=== PATIENT | male | born 1980 | race Caucasian/White ===

== ENCOUNTER 2025-06-04 14:36 | Outpatient (OUT) | payer OTHER, SELFPAY ==
--- NOTE | 2025-06-04 14:50 | CT_ITS ---
The [address] [address] Patient Name: EL SMITH MRN: [id number] date: 1980 Sex: M Assigned Patient Location: CT Current Patient Location: CT Accession/Order Number: [id number] Exam Date: 06/04/2025 16:27 Report Date: 06/04/2025 16:30 At the request of: LEONARD DANIEL MD Procedure: CT chest wo con CT Chest without contrast TECHNIQUE: Axial imaging with 2-D reconstruction. The CT exam was performed using one or more the following dose reduction techniques: Automated exposure control, adjustment of the MA and/or Kv according to patient size, or use of the iterative reconstruction technique. History: Left-sided chest pain COMPARISON: None THYROID: Unremarkable TRACHEA AND BRONCHI: Patent ESOPHAGUS: Unremarkable. HEART: Within normal limits PERICARDIAL EFFUSION: None CORONARY ARTERY CALCIFICATION: None MEDIASTINUM: No adenopathy. No pneumoperitoneum. No mediastinal hematoma. PULMONARY AMINA: No hilar mass or adenopathy is seen. THORACIC AORTA Unremarkable LUNG NODULE None LUNGS: Minimal left lung base scarring. PLEURAL EFFUSION: None PNEUMOTHORAX: No pneumothorax seen. CHEST WALL: No abnormality AXILLA:Unremarkable BONY STRUCTURES remote left rib fractures. UPPER ABDOMEN: Hepatic steatosis. CT/CT chest wo con IMPRESSION: No acute findings. Mild left basilar scarring. Old left rib fractures. Impression dictated by: José Miguel Butcher M.D. 06/04/2025 4:30 PM Dictation Location: CURRENT Electronically authenticated by: [id number] Y Date: 06/04/2025 16:30
== END 2025-06-04 14:37 | disposition home or self-care (01) ==
LOC: CT 14:40
PROVIDERS: PCP Family Medicine; Visit Provider Family Medicine
DX: R07.89 Other chest pain (principal)
CPT/HCPCS: 71250

== ENCOUNTER 2025-10-16 10:26 | Outpatient (OUT) | payer OTHER, SELFPAY ==
--- OUTSIDE RECORDS SUMMARY | 2025-10-16 05:10 | XMS_ITS | Continuity of Care Document ---
Author Organization [facility] Address [address] [place] [address] Phone Care Team Providers Care [employer]ner Name Role Phone Aimee Hicks MD Primary Care Provider Jelena Chapman APRN Attending Provider Aimee Hicks MD Attending Provider Care Teams Patient Care Team Team Status: Active Member Role/Relationship Status Dates Aimee Hicks MD Primary Care Provider Active Visit Care Team Team Status: Inactive Member Role/Relationship Status Dates Aimee Hicks MD Primary Care Provider Active Start: August 02, 2025 End: August 02, 2025Pamarky Chapman APRN TEST TUBE MAKER-CAttending Provider ActiveStart: August 02, 2025 End: August 02, 2025 Patient Care Team Team Status: Inactive Member Role/Relationship Status Dates Aimee Hicks MD Primary Care Provider Active Start: October 16, 2025 End: October 16, 2025Aimee Hicks MDAttending ProviderActiveStart: October 16, 2025 End: October 16, 2025 Chief Complaint and Reason for Visit Chief Complaint Admit Date cough, congestion August 02, 2025 9:02am Wellness October 16, 2025 9:28am Reason for Visit Admit Date Viral URI August 02, 2025 9:02am Wellness examination October 16, 2025 9:28am Allergies, Adverse Reactions, Alerts Allergen Type Severity Reaction Last Updated Verified Status No Known Allergies Allergy Unknown October 16, 2025 9:38amYesActive Social History Smoking Status Status Start Date End Date Date of Observa tion Never smoked tobacco (finding) October 16, 2025 9:41am Observation Status Observation Response Date of Response Legal Sex Male (finding) Sex Assigned At [facility] 1979 Family History Relationship Condition Age at Onset Recorded Date/T flavio Not Specified No pertinent family history Unknown brotherDeceasedUnknown Problems Active Problems Problem Diagnosis/Recorded Date Onset Date Stat us Rib injury February 11, 2025 10:19am Unknown Act stephanie Wellness examination October 16, 2025 10:00am Unkno wn Active Rib contusion February 11, 2025 11:21am Unknown Ac tive Left-sided chest wall pain April 30, 2025 1:11pm Unkno wn Active Wrist pain, right October 31, 2024 12:18pm Unknown Active Viral URI August 02, 2025 8:21am Unknown A ctive Medications Medication Status Dose Units Route Directions Qty Days Refills S tart Date Stop Date End Date Reason(s) Instructions Adherence Cetirizine (All Day Allergy (Cetirizine)) 10 mg tablet Discontinued 10 MG PO Daily 90 3February 2023 12:00amFebruary 2024 8:28amOmeprazole 40 mg capsule,delayed release(DR/EC)Uedcaf68XYLZYghjn29830Etrst 2023 3:43pm Complies with drug therapyCetirizine (All Day Allergy (Cetirizine)) 10 mg tablet Yzqary24SEAYOryhu475Bptusdkm 2024 8:28amComplies with drug therapy Omeprazole 40 mg capsule,delayed release(DR/EC)Yzzkhcwvlwve92NPWGFupag110Opjnzyo 2023 12:00amMarch 2023 3:43pmAmoxicillin-Pot Clavulanate 875-125 mg ugxtxwJbgvbcupvxvm2WEGQTMtglb ynspg102Mkcqb 2023 11:00pmDecember 2023 11:43amAlbuterol Sulfate 90 mcg/actuation HFA aerosol hpmgqnvQbdvrn0HFEH INHALATIONFour times daily as needed for shortness of breath or wheezing8.50 March 25, 2024 11:00pmComplies with drug therapyMethylprednisolone (Medrol (Chan)) 4 mg tablets,dose drnxJjpxzpngvmgn1VRtzn package kuzxyagzmp67Rguvg 2023 11:00pmDe2023 11:43amPO PER PKG DIR for 6 daysTriamcinolone Acetonide (Nasacort) 55 mcg aerosol,lswhcHldygmbvgkbt3EXKWTJIRHSOWVNXOgrphBsez 1st, 2025 11:00pmSept2024 8:10amFreeTextSi sprays Nasally Once a day; Note: Source Status: Taking; Refills: 1; Provider: Kurt Welsh Clotrimazole-Betamethasone 1-0.05 % izkojNhtfeosvxdlf7MJUFEAWVQCQVDZrrsy daily April 29, 2025 11:00pmJun2024 12:34pmFreeTextSi application Externally Twice a day; Note: Source Status: Taking; Provider: Kurt Yu ( )Triamcinolone Acetonide (Nasacort) 55 mcg aerosol,sprayActive2 SPRAYINTRANASALDaily as neededAugust 02, 2025 8:10amFreeTextSi sprays Nasally Once a day; Note: Source Status: Taking; Refills: 1; Provider: Kurt guthrie EComplies with drug therapy Immunizations Immunization Event Date Not Given Reason Dose Number Admin Assistant Lot Number Reason(s) Given Vaccine Information Statement (VIS) Detail Administration Location COVID-19 Jayden Cervantes ([employer]) October 21, 2021 influenza, unspecified formulationNov2020influenza, unspecified formulationDecemb2021Tetanus, Diphtheria adult, 5 Lf pres free abs September 21, 2014Tetanus, Diphtheria adult, 5 Lf pres free absOct2015 Tetanus, Diphtheria, Pertussis (Tdap)August 29, 2019 Vital Signs Vital Reading Result Reference Range Collection Date/Time Height 72 [in_i] August 02, 2025 8:07cyPpgerf028.79 kgSept2024 8:06amBody Xqaefouatci12.9 [degF]97.6-99.0Sept2024 8:06amHeart Rate78 /pjf41-682 August 02, 2025 8:06amRespiratory rate18 /bzv62-50Ypyjbfmzn 4th, 2025 8:06am Oxygen saturation by Pulse ggmixshv15 %95-100Sept2024 8:06amBP Pbbmifsu880 mm[Hg]100-140Se2024 8:06amBP Qfbjmpcmi14 mm[Hg]60-100 August 02, 2025 8:06amBMI (Body Mass Index)41.5 kg/d4Vkwgdchzy2024 8:71zgJcbbgl70 [in_i]October 16, 2025 9:66weKyblqa802.70 kgOctober 16, 2025 9:38amHeart Rate76 /yvb02-429MabkyyusOctober 16, 2025 9:38amBP Rxawrtcq414 mm[Hg]100-140October 16, 2025 9:38amBP Ntpypioyw65 mm[Hg]60-100October 16, 2025 9:38amBMI (Body Mass Index)41.8 kg/a3BraextqgOctober 16, 2025 9:38am Advance Directives Advance Directive Response Recorded Date/ Time Advance Directives No December 01, 2023 10:48am Insurance Providers Guarantor Gonzalez Kumar Address [address] [facility] [address]Lcd[employer] Info.Home Phone: Coverage Status Update:2025 Payer Group Member ID Coverage Type Subscriber Relationship to Subscriber Effective Date Expiration Date MMO Security Incident Response Engineer Id: [id number] L Brumbaugh Id: [id number] [address] [place] [id number] Home Phone: Self Encounters Encounter Location(s) Arrival/Admit Date Discharge/Departure Date Discharge/Departure Disposition Provider(s) Departed Physician/ Provider Office Visit -[facility] August 02, 2025 9:02am August 02, 2025 9:21am Discharged to home care or self care (routine discharge) Jelena Chapman APRN Departed Physician/ Provider Office Visit -[facility] October 16, 2025 9:28am October 16, 2025 10:09am Discharged to home care or self care (routine discharge) Aimee Hicks MD Recent Diagnosis Onset Date Admit Date Viral URI Unknown August 02 025 9:02am Wellness examination Unknown October 162024 9:28am Assessments Diagnosis Onset Date Resolution Status Admit Date Viral URI acuteSept2024 9:02amWellness examinationacuteNov2024 9:28am Plan of Treatment Author Jelena Chapman [facility] AdministrationAuthoredSeptember 2024 8:21amIllness is likely viral in nature; and may take up to 7-10 days to run its course. Treatment is symptomatic. Push fluids, rest. May use tylenol and motrin as needed. If symptoms do not resolve over the next few days, patient is to call back. Future Tests Future scheduled test information is unavailable Pending Tests Test Name Ordered Date Scheduled Date Comprehensive Metabolic Panel October 16 10:00am Future Visits Future appointment information is unavailable Future Procedures Procedure Name Ordered Date Scheduled Date Complete Blood Count Auto Diff October 16 10:00am Lipid PanelNov2024 10:00am Future Medications Future medication information is unavailable Patient Instructions Patient instructions are unavailable
[2025-10-16 11:14] LABS: Hematocrit 40.6 % (42.0-54.0); Hemoglobin 14.4 g/dL (14.0-18.0); Immature Granulocytes Abs Auto 0.01 10^3/uL (0.00-0.03); Immature Granulocytes Pct Auto 0.2 % (0.0-0.5); Lymphocytes Absolute Auto 1.8 10^3/uL (1.2-3.8); Mean Corpuscular HGB Conc 35.5 g/dL (29.9-35.2); Mean Corpuscular Hemoglobin 31.6 pg (25.9-34.0); Mean Corpuscular Volume 89.2 fL (80.0-94.0); Platelet Count 271 10^3/uL (150-450); Red Blood Count 4.55 10^6/uL (4.70-6.10); White Blood Count 6.1 10^3/uL (4.0-11.0)
[2025-10-16 11:43] LABS: Alanine Aminotransferase 64 U/L (16-63); Albumin Globulin Ratio 1.2; Albumin Level 3.9 g/dL (3.4-5.0); Alkaline Phosphatase 64 U/L (46-116); Anion Gap 14.4; Aspartate Amino Transferase 32 U/L (15-37); Blood Urea Nitrogen 13.0 mg/dL (7.0-18.0); Calcium 8.9 mg/dL (8.5-10.1); Carbon Dioxide 25.6 mmol/L (21.0-32.0); Chloride 105 mmol/L (98-107); Cholesterol 218 mg/dL (<=200); Estimated GFR (African America >60 (>=60 mL/min/1.73m^2); Estimated GFR (Non-African Ame >60 (>=60 mL/min/1.73m^2); Globulin 3.3 g/dL; Glucose 102 mg/dL (74-106); HDL Cholesterol 44 mg/dL (40-60); Potassium 4.0 mmol/L (3.5-5.1); Sodium 141 mmol/L (136-145); Total Protein 7.2 g/dL (6.4-8.2); Triglycerides 156 mg/dL (<=150); VLDL CHOLESTEROL 31.2 mg/dL
== END 2025-10-16 10:27 | disposition home or self-care (01) ==
LOC: LAB 10:27
PROVIDERS: PCP Family Medicine; Visit Provider Family Medicine
DX: Z00.00 Encounter for general adult medical examination without abnormal findings (principal)
CPT/HCPCS: 36415; 80053; 80061; 85025